=== PATIENT | female | born 1985 | race Caucasian/White ===

== ENCOUNTER 2020-04-17 21:04 | Emergency (ER) | payer OTHER ==
[~2020-04-17] VITALS: Ht 162.6 cm; Wt 99.8 kg
[2020-04-17] MEDS ORDERED: LEXAPRO20 MG PO (21:27)
[2020-04-17 21:44] LABS: ABSOLUTE BASOPHILS 0.1 thou/uL (0.0-0.2); ABSOLUTE EOSINOPHILS 0.1 thou/uL (0.0-0.7); ABSOLUTE LYMPHOCYTES 1.2 thou/uL (0.8-5.3); ABSOLUTE MONOCYTES 0.6 thou/uL (0.0-1.2); ABSOLUTE NEUTROPHILS 7.5 thou/uL (1.6-8.1); BASOPHILS 0.6 %; EOSINOPHILS 1.4 %; HEMATOCRIT 36.5 % (37.0-47.0); HEMOGLOBIN 12.1 gm/dL (12.0-15.0); MCH 26.2 pg (26.0-34.0); MCV 79.3 fL (80.0-100.0); MONOCYTES 6.3 %; MPV 8.1 fl. (7.2-11.1); NUCLEATED RBCS 0 /100WBC; PLATELET COUNT* 281 thou/uL (150-400); POLYS 78.7 %; RBC 4.61 mil/uL (4.20-5.00); RDW-CV 14.8 % (10.5-14.5); WBC 9.6 thou/uL (4.0-11.0)
[2020-04-17 21:53] LABS: CALCIUM 9.1 mg/dL (8.5-10.1); POTASSIUM 3.5 mmol/L (3.5-5.1)
[2020-04-17 21:59] LABS: APTT 24.7 Seconds (25.0-31.3); PROTIME 9.8 Seconds (9.20-11.50)
[2020-04-17 22:18] LABS: INR < 0.9
[2020-04-17 23:22] VITALS: BP 116/47
--- NOTE | 2020-04-18 12:45 | EKG ---
[place] [address] ELECTROCARDIOGRAM REPORT Name: TRELALA Barbara Room: [facility]#: [id number] Admission: 04/17/20 Attend Phys: Discharge: 04/17/20 Date of : 87 Date of Service: 04/17/202116 Report #: [id number] THIS REPORT FOR: //name// [facility] ED Test Date: 2020-04-17 Test Time: 21:17:34 Pat Name: LALA TOLEDO Department: Room: Gender: F Business Support: LEAL : 1985 Requested By: Say Degroot Order Number: [id number] MD: Norris Mckeon Measurements Intervals [place] Rate: 123 P: 59 MS: 155 QRS: -2 QRSD: 83 T: 29 QT: 347 QTc: 497 Interpretive Statements Sinus tachycardia No previous ECG available for comparison Electronically Signed On 04-18-2020 12:45:11 [employer] by Norris Mckeon [email or web address] <ELECTRONICALLY SIGNED> By: Norris Mckeon MD, [facility] 04/18/20 1245 16 16 Norris Mckeon MD, FACC /EPI
== END 2020-04-17 23:24 | disposition home or self-care (01) ==
LOC: M.ERS 21:04
PROVIDERS: Nurse Practitioner Psychiatric/Mental Health
DX: T88.1XXA Other complications following immunization, not elsewhere classified, initial encounter (principal); J45.909 Unspecified asthma, uncomplicated; Z79.899 Other long term (current) drug therapy